=== PATIENT | male | born 1950 | race Caucasian/White ===

== ENCOUNTER → 2021-04-05 | Outpatient (CLI) | payer MEDICARE ==
[2021-04-05 13:27] LABS: BASE EXCESS ABG 2 mmol/L (-3-3); HCO3 ABG 30 mmol/L (21-28); PCO2 ABG 56 mmHg (35-46); PO2 ABG 52 mmHg (65-108); SAT O2 ABG 87 % (92-99)
[2021-04-05 13:40] LABS: FIO2 ABG 21
== END ==
LOC: LAB 11:22
DX: R06.09 Other forms of dyspnea (principal)
CPT/HCPCS: 36600; 82805

== ENCOUNTER → 2021-06-08 | Outpatient (CLI) | payer MEDICARE ==
[2021-06-08 13:02] LABS: BASE EXCESS ABG -1 mmol/L (-3-3); HCO3 ABG 24 mmol/L (21-28); PCO2 ABG 41 mmHg (35-46); PO2 ABG 86 mmHg (65-108); SAT O2 ABG 96 % (92-99)
[2021-06-08 13:12] LABS: FIO2 ABG 28
== END ==
LOC: LAB 11:56
PROVIDERS: ATTEND Internal Medicine Critical Care Medicine
DX: J96.11 Chronic respiratory failure with hypoxia (principal)
CPT/HCPCS: 36600; 82805